=== PATIENT | female | born 1965 | race Caucasian/White ===

== ENCOUNTER → 2016-09-24 | Outpatient (CLI) | payer BC ==
[2016-09-24 12:08] LABS: Basophils % (A) 0 %; CH 32.5; CHCM 33.5; Eosinophils # (A) 0.1 k/uL (0-0.7); Eosinophils % (A) 2 %; HCT 44.4 % (34.0-46.0); HDW 2.42; HGB 14.5 gm/dL (11.4-16.0); Luc # (Auto) 0.11; Luc % (Auto) 2; Lymphocytes # (A) 1.9 k/uL (1.0-4.8); Lymphocytes % (A) 30 %; MCH 31.8 pg (25.0-35.0); MCHC 32.6 g/dL (31.0-37.0); MCV 97.5 fL (80.0-100.0); Mean Platelet Volume 6.9; Monocytes # (A) 0.2 k/uL (0-1.0); Monocytes % (A) 3 %; Neutrophils # (A) 3.9 k/uL (1.3-7.7); Neutrophils % (A) 62 %; RBC 4.56 m/uL (3.80-5.40); RDW 13.1 % (11.5-15.5); WBC 6.3 k/uL (3.8-10.6)
[2016-09-24 12:18] LABS: ALT 47 U/L (9-52); AST 24 U/L (14-36); Alkaline Phosphatase 63 U/L (38-126); Anion Gap 12 mmol/L; Blood Urea Nitrogen 18 mg/dL (7-17); Calcium 9.8 mg/dL (8.4-10.2); Carbon Dioxide 28 mmol/L (22-30); Chloride 103 mmol/L (98-107); Creatine Kinase 53 U/L (30-135); Glucose 92 mg/dL (74-99); LDH 436 U/L (313-618); Non-African American GFR(MDRD) >60 (>60 ml/min/1.73 sqM); Potassium 4.5 mmol/L (3.5-5.1); Sodium 143 mmol/L (137-145); Total Bilirubin 0.5 mg/dL (0.2-1.3); Total Protein 7.6 g/dL (6.3-8.2)
[2016-09-29 14:41] LABS: Mis test requested (Blood) Trop T
== END | disposition home or self-care (01) ==
LOC: LABWHC1 11:17
PROVIDERS: ATTEND Family Medicine
DX: R07.89 Other chest pain (principal)
CPT/HCPCS: 36415; 80053; 82550; 83615; 84484; 85025; 85379

== ENCOUNTER → 2017-11-04 | Outpatient (CLI) | payer BC ==
--- NOTE | 2017-11-04 13:13 | MM ---
Reason for exam: screening (asymptomatic). Last mammogram was performed 2 years and 4 months ago. History: Patient is postmenopausal. Family history of breast cancer in maternal grandmother. Cyst aspiration of the left breast, 1997. Physical Findings: A clinical breast exam by your physician is recommended on an annual basis and results should be correlated with mammographic findings. MG 3D Screening Mammo W/Cad Bilateral CC and MLO view(s) were taken. Prior study comparison: June 27, 2015, bilateral MG screening mammo w CAD. June 05, 2014, bilateral MG screening mammo w CAD. There are scattered fibroglandular densities. There is no discrete abnormality. ASSESSMENT: Negative, BI-RAD 1 RECOMMENDATION: Routine screening mammogram of both breasts in 1 year.
== END ==
LOC: RADMAMWWP 10:43
PROVIDERS: ATTEND Family Medicine
DX: Z12.31 Encounter for screening mammogram for malignant neoplasm of breast (principal)
CPT/HCPCS: 77063; 77067

== ENCOUNTER → 2018-02-28 | Outpatient (CLI) | payer BC ==
--- NOTE | 2018-02-28 08:30 | US ---
EXAMINATION TYPE: US abdomen complete DATE OF EXAM: 02/28/2018 COMPARISON: NONE CLINICAL HISTORY: R10.9 Abdominal Pain. Burning sensation epigastric area, history of pancreatitis EXAM MEASUREMENTS: Liver Length: 13.1 cm Gallbladder Wall: 0.3 cm CBD: 0.2 cm Spleen: 10.2 cm Right Kidney: 10.7 x 4.2 x 5.6 cm Left Kidney: 10.1 x 5.5 x 4.4 cm Pancreas: visualized portions appear wnl Liver: appears wnl Gallbladder: no evidence of stones Evidence for sonographic Gonzalez's sign: no CBD: wnl Spleen: wnl Right Kidney: no evidence of hydronephrosis or mass Left Kidney: no evidence of hydronephrosis or mass Upper IVC: wnl Abd Aorta: wnl IMPRESSION: 1. Abdomen ultrasound appears unremarkable as visualized.
== END | disposition home or self-care (01) ==
LOC: RADUSWWP 07:28
PROVIDERS: ATTEND Family Medicine
DX: R10.9 Unspecified abdominal pain (principal)
CPT/HCPCS: 76700

== ENCOUNTER → 2019-05-12 | Outpatient (CLI) | payer BC ==
--- NOTE | 2019-05-15 09:55 | MM ---
Reason for exam: screening (asymptomatic). Last mammogram was performed 1 year and 6 months ago. History: Patient is postmenopausal. Family history of breast cancer in maternal grandmother. Cyst aspiration of the left breast, 1997. Physical Findings: A clinical breast exam by your physician is recommended on an annual basis and results should be correlated with mammographic findings. MG 3D Screening Mammo W/Cad Bilateral CC and MLO view(s) were taken. Prior study comparison: November 04, 2017, bilateral MG 3d screening mammo w/cad. June 27, 2015, bilateral MG screening mammo w CAD. There are scattered fibroglandular densities. Asymmetric breast tissue right medial aspect inferior position, stable. There is no discrete abnormality. ASSESSMENT: Benign, BI-RAD 2 RECOMMENDATION: Routine screening mammogram of both breasts in 1 year.
== END | disposition home or self-care (01) ==
LOC: RADMAMWWP 09:13
PROVIDERS: ATTEND Family Medicine
DX: Z12.31 Encounter for screening mammogram for malignant neoplasm of breast (principal)
CPT/HCPCS: 77063; 77067

== ENCOUNTER → 2020-05-25 | Outpatient (CLI) | payer BC ==
--- NOTE | 2020-05-25 10:11 | MR ---
MRI CERVICAL SPINE: CLINICAL HISTORY: Cervical radiculopathy per order. Neck pain for 15 years causing pain or weakness i nto both arms and fingers TECHNIQUE: Multiplanar, multisequence imaging of the cervical spine is performed without IV contrast. COMPARISON: None. FINDINGS:: Images show levoconvex scoliotic curvature centered at the cervicothoracic junction Sagitt al images of the cervical spine show the craniocervical junction to appear within normal limits. The cervical and upper thoracic spinal cord is normal in caliber and signal. Alignment is straightened o n sagittal images with slight grade 1 anterolisthesis C2 on C3 and slight grade 1 retrolisthesis C3 o n C4 and C6 on C7. The vertebral body heights are normal. Mild to moderate disc space narrowing C5- C6 and C6-C7 levels with mild to moderate anterior spurring, some heterogeneous bone uptake to endpla te changes at these levels are noted. Axial images show the C2-C3 level to appear within normal limits. Axial images at C3-C4 levels from broad-based left paracentral disc protrusion effacing anterolateral thecal sac up to ventral surface of spinal cord on image 35, bilateral neural foramina are patent. Axial images at C4-C5 level show focal left paracentral/foraminal disc protrusion effacing anterolate ral thecal sac and causing asymmetric mild left-sided neural foraminal narrowing. Axial images at the C5-C6 level shows broad-based right paracentral disc protrusion effacing anterola teral thecal sac, there is additional left foraminal spur disc complex causing mild left-sided neural foraminal narrowing sagittal image 4. Axial images at C6-C7 also broad-based left paracentral/foraminal disc protrusion effacing the travis lateral thecal sac and causing mild left-sided neural foraminal narrowing. Axial images at C7-T1 level are within normal limits. Somewhat small size thyroid gland is noted. IMPRESSION: Loss of normal cervical curvature. Multilevel spondylolisthesis and degenerative changes greatest C3-C4 through the C6-C7 levels as detailed above.
== END | disposition home or self-care (01) ==
LOC: RADMRIMAIN 08:13
PROVIDERS: ATTEND Family Medicine
DX: M43.12 Spondylolisthesis, cervical region (principal); M47.22 Other spondylosis with radiculopathy, cervical region; M43.8X2 Other specified deforming dorsopathies, cervical region
CPT/HCPCS: 72141

== ENCOUNTER → 2020-11-21 | Outpatient (CLI) | payer BC ==
--- NOTE | 2020-11-25 11:35 | MM ---
Reason for exam: screening (asymptomatic). Last mammogram was performed 1 year and 6 months ago. History: Patient is postmenopausal. Family history of breast cancer in maternal grandmother. Cyst aspiration of the left breast, 1997. Physical Findings: A clinical breast exam by your physician is recommended on an annual basis and results should be correlated with mammographic findings. MG 3D Screening Mammo W/Cad Bilateral CC and MLO view(s) were taken. Prior study comparison: May 12, 2019, bilateral MG 3d screening mammo w/cad. November 04, 2017, bilateral MG 3d screening mammo w/cad. The breast tissue is heterogeneously dense. This may lower the sensitivity of mammography. There is no discrete abnormality. ASSESSMENT: Negative, BI-RAD 1 RECOMMENDATION: Routine screening mammogram of both breasts in 1 year.
== END | disposition home or self-care (01) ==
LOC: RADMAMWWP 11:36
PROVIDERS: ATTEND Family Medicine
DX: Z12.31 Encounter for screening mammogram for malignant neoplasm of breast (principal)
CPT/HCPCS: 77063; 77067

== ENCOUNTER → 2021-03-20 | Outpatient (CLI) | payer BC ==
[2021-03-20 12:27] LABS: Basophils # (A) 0.03 X 10*3/uL (0.00-0.10); Basophils % (A) 0.5 %; Eosinophils % (A) 3.5 %; HCT 42.8 % (37.2-46.3); HGB 13.9 g/dL (12.0-15.0); Lymphocytes # (A) 1.75 X 10*3/uL (0.90-5.00); Lymphocytes % (A) 30.4 %; MCH 32.1 pg (27.0-32.0); MCHC 32.5 g/dL (32.0-37.0); MCV 98.8 fL (80.0-97.0); Monocytes # (A) 0.37 X 10*3/uL (0.20-1.00); Monocytes % (A) 6.4 %; Neutrophils # (A) 3.39 X 10*3/uL (1.80-7.70); Platelet Count 274 X 10*3/uL (140-440); RBC 4.33 X 10*6/uL (4.10-5.20); RDW 13.7 % (11.5-14.5); WBC 5.75 X 10*3/uL (4.50-10.00)
[2021-03-20 14:46] LABS: Luteinizing Hormone 54.8 mIU/mL
[2021-03-20 14:47] LABS: Follicle Stimulating Hormone 104.4 mIU/mL
[2021-03-20 17:07] LABS: Erythrocyte Sedimentation Rate 8 mm/Hr (0-30)
[2021-03-20 17:27] LABS: African American GFR (CKD) 96.9 (60.0-200.0); Albumin 4.3 g/dL (3.80-4.90); Albumin/Globulin Ratio 1.79 (1.60-3.17); Anion Gap 10.8 mmol/L (4.00-12.00); BUN/Creat Ratio 26.25 Ratio (12.00-20.00); Calcium 9.1 mg/dL (8.7-10.3); Carbon Dioxide 24.2 mmol/L (21.6-31.8); Globulin 2.4 g/dL (1.6-3.3); Non-African American GFR(CKD) 83.6 (60.0-200.0); Potassium 4.6 mmol/L (3.5-5.5); Total Bilirubin 0.3 mg/dL (0.3-1.2); Total Protein 6.7 g/dL (6.2-8.2)
== END | disposition home or self-care (01) ==
LOC: LABWHC1 07:25
PROVIDERS: ATTEND Family Medicine
DX: Z11.59 Encounter for screening for other viral diseases (principal); T78.49XA Other allergy, initial encounter; E89.41 Symptomatic postprocedural ovarian failure; Z20.822 Contact with and (suspected) exposure to COVID-19
CPT/HCPCS: 36415; 80053; 82040; 82175; 82570; 82626; 82672; 82785; 83001; 83002; 83655; 83825; 84270; 84403; 85025; 85652; 86769

== ENCOUNTER → 2023-02-16 | Outpatient (CLI) | payer BC ==
[2023-02-16 15:49] LABS: ALT 23 U/L (8-44); AST 18 U/L (13-35); Albumin 4.6 d/dL (3.8-4.9); Albumin/Globulin Ratio 1.84 Ratio (1.60-3.17); Alkaline Phosphatase 64 U/L (41-126); BUN/Creat Ratio 32.43 Ratio (12.00-20.00); Blood Urea Nitrogen 22.7 mg/dL (9.0-27.0); Calcium 9.8 mg/dL (8.7-10.3); Carbon Dioxide 26.3 mmol/L (21.6-31.8); Chloride 103 mmol/L (96-109); Chol/HDL Ratio 3.74 Ratio; Globulin 2.5 d/dL (1.6-3.3); Glucose 84 mg/dL (70-110); LDL Cholesterol,Calculated 141.5 mg/dL (0.0-131.0); Potassium 5.2 mmol/L (3.5-5.5); Sodium 141 mmol/L (135-145); Total Bilirubin 0.5 mg/dL (0.3-1.2); Total Protein 7.1 d/dL (6.2-8.2)
[2023-02-16 15:56] LABS: Basophils # (A) 0.02 X 10*3/uL (0.00-0.10); Basophils % (A) 0.4 %; Eosinophils # (A) 0.14 X 10*3/uL (0.04-0.35); Eosinophils % (A) 2.6 %; HCT 45.9 % (37.2-46.3); HGB 14.7 d/dL (12.0-15.0); Lymphocytes # (A) 1.57 X 10*3/uL (0.90-5.00); Lymphocytes % (A) 28.8 %; MCH 32.4 pg (27.0-32.0); MCV 101.1 FL (80.0-97.0); Mean Platelet Volume 10.1 FL (9.5-12.2); Monocytes # (A) 0.27 X 10*3/uL (0.20-1.00); Monocytes % (A) 4.9 %; NRBC Per 100 WBC 0 X 10*3/uL (0.00-0.01); Neutrophils # (A) 3.45 X 10*3/uL (1.80-7.70); Neutrophils % (A) 63.1 %; Platelet Count 307 X 10*3/uL (140-440); RBC 4.54 X 10*6/uL (4.10-5.20); RDW 13.6 % (11.5-14.5); WBC 5.46 X 10*3/uL (4.50-10.00)
== END | disposition home or self-care (01) ==
LOC: LABWHC1 08:27
PROVIDERS: ATTEND Family Medicine
DX: Z00.00 Encounter for general adult medical examination without abnormal findings (principal)
CPT/HCPCS: 36415; 80053; 80061; 83036; 84443; 85025

== ENCOUNTER → 2023-02-16 | Outpatient (CLI) | payer BC ==
[2023-02-16 08:43] VITALS: BP 102/48; PULSE 71; RESP 16; TEMP 98
--- NOTE | 2023-02-16 09:22 | P.HPOB ---
History of Present Illness H&P Date: 02/16/23 Chief Complaint: The patient is here for her routine gynecologic exam and ma mmogram. This is a 57-year-old with an LMP of 2012. The patient is here to establish with this office. It has been about 2 years since her last pelvic exam. She is without gynecologic complaints and denies any postmenopausal bleeding. Review of Systems The patient's weight has been stable over the last year. She denies respiratory, cardiac, or G.I. problems. Past Medical History Past Medical History: Asthma Additional Past Medical History / Comment(s): Left bundle-branch block. 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 Endometriosis in the past. History of Any Multi-Drug Resistant Organisms: None Reported Past Surgical History: Joint Replacement Additional Past Surgical History / Comment(s): LAPRASCOPIC SX, D&C. Right knee replacement. Past Anesthesia/Blood Transfusion Reactions: Family History of Problems w/ Anesthesia Additional Past Anesthesia/Blood Transfusion Reaction / Comment(s): MOTHER TOOK A LONG TIME TO WAKE UP Past Psychological History: ADD/ADHD (She denies depression.) Smoking Status: Never smoker Past Alcohol Use History: Occasional (2 per month.) Past Drug Use History: None Reported Additional History: She has been since 1993. 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 - Past Family History Mother Family Medical History: Cancer Additional Family Medical History / Comment(s): CLL, MOTHER OF BLOOD CLOT POST HEART CATH. Maternal uncle had liver cancer and another maternal uncle had colon cancer. Father Additional Family Medical History / Comment(s): . Heart disease in his 80s. Medications and Allergies Home Medications Medication Instructions Recorded Confirmed Type Albuterol Sulfate [Ventolin HFA] 2 puff INHALATION DIRECTED PRN 12/23/15 02/16/23 History Breo Inhaler (Unknown Dose) 1 applic INHALATION QAM 12/23/15 02/16/23 History Dextroamphetamine/Amphetamine 10 mg PO DAILY 12/24/15 02/16/23 History [Adderall] Ivabradine HCl [Corlanor] 10 mg PO BID 02/16/23 02/16/23 History Omalizumab [Xolair] 375 mg INJ DIRECTED 02/16/23 02/16/23 History Allergies Allergy/AdvReac Type Severity Reaction Status Date / Time nickel Allergy Rash/Hives Unverified 02/16/23 08:36 Penicillins Allergy Rash/Hives Verified 02/16/23 08:36 Sulfa (Sulfonamide Allergy Rash/Hives Verified 02/16/23 08:36 Antibiotics) Exam Vital Signs Temp Pulse Resp BP Pulse Ox 02/16/23 08:39 98 F 71 16 102/48 100 Intake and Output 02/15/23 02/16/23 02/16/23 22:59 06:59 14:59 Other: Weight 70.76 kg Height 5 feet 6 inches, weight 156 pounds, BMI 25.2. This is a well-developed well-nourished white female who is alert and oriented times 3 in no acute distress. HEENT: Within normal limits. NECK: Supple without mass or thyromegaly. CHEST AND LUNGS: Clear to auscultation. HEART: Regular rate and rhythm. BREASTS: Are without mass or discharge. AXILLARY EXAM: Negative for adenopathy. BACK: Negative for CVA tenderness. ABDOMEN: Soft, nontender, without palpable masses. PELVIC EXAM: Normal external genitalia with mild atrophy. Cervix and vagina appear normal with mild atrophy. There is no unusual discharge. There is no evidence of prolapse. The uterus is midposition, nongravid size and nontender. There are no palpable adnexal masses or tenderness. RECTAL EXAM: Rectovaginal exam is negative for mass or tenderness and is negative for occult blood. EXTREMITIES: Nontender. IMPRESSION: 1. 57-year-old menopausal female with normal gynecologic exam. PLAN: 1. Pap smear cotest was performed. 2. Self breast awareness was discussed with the patient. We have also discussed symptoms associated with inflammatory breast cancer. Screening mammogram will be done today. 3. Osteoporosis prevention was discussed. I have stressed the importance of adequate calcium, vitamin D and regular exercise. Recommended amounts of calcium and vitamin D were also discussed. 4. Colorectal cancer screening was discussed. She had a negative Cologuard testing in 2021 per the patient. She will continue to do this type of screening through her PCP. 5. She was advised to return in one year for her annual well woman exam.
--- NOTE | 2023-02-17 08:55 | MM ---
Reason for Exam: Screening (asymptomatic). Last mammogram was performed 2 year(s) and 3 month(s) ago. Patient History: Menarche at age 18. First Full-Term at age 26. Postmenopausal. Patient has history of breast feeding. 1997, Cyst Aspiration on the Left side. Maternal grandmother had breast cancer. Risk Values: Lexie 5 year model risk: 1.0%. NCI Lifetime model risk: 6.7%. Prior Study Comparison: 06/27/2015 Bilateral Screening Mammogram, [facility]. 11/04/2017 Bilateral Screening Mammogram, [facility]. 05/12/2019 Bilateral Screening Mammogram, [facility]. 11/21/2020 Bilateral Screening Mammogram, [facility]. Tissue Density: The breast tissue is heterogeneously dense. This may lower the sensitivity of mammography. Findings: Analyzed By CAD. There is no suspicious group of microcalcifications or new suspicious mass in either breast. Overall Assessment: Benign, BI-RAD 2 Management: Screening Mammogram of both breasts in 1 year. . Patient should continue monthly self-breast exams. A clinical breast exam by your physician is recommended on an annual basis. This exam should not preclude additional follow-up of suspicious palpable abnormalities. Note on Lexie scores and lifetime risk: 1. A Lexie score greater than 3% is considered moderate risk. If this is the case, consider specialist referral to assess eligibility for a risk reducing agent. 2. If overall lifetime risk for the development of breast cancer is 20% or higher, the patient may qualify for future screening with alternating mammogram and breast MRI. Electronically signed and approved by: Guerrero Crespo M.D. Radiologis
== END ==
LOC: WWCWWP 08:24
PROVIDERS: ATTEND Obstetrics & Gynecology
DX: Z12.31 Encounter for screening mammogram for malignant neoplasm of breast (principal); Z01.411 Encounter for gynecological examination (general) (routine) with abnormal findings; Z91.048 Other nonmedicinal substance allergy status; Z88.0 Allergy status to penicillin; Z88.2 Allergy status to sulfonamides; J45.909 Unspecified asthma, uncomplicated
CPT/HCPCS: 77063; 77067

== ENCOUNTER → 2023-07-12 | Outpatient (CLI) | payer BC ==
--- NOTE | 2023-07-12 09:38 | CT ---
EXAMINATION TYPE: CT abdomen pelvis wo con CT DLP: 392 mGycm, Automated exposure control for dose reduction was used. DATE OF EXAM: 07/12/2023 9:10 AM COMPARISON: None CLINICAL INDICATION:Female, 58 years old with history of R31.9 hematuria; TECHNIQUE: Axial CT of the ;CT abdomen pelvis wo con;Sagittal and coronal reformats were created on a separate workstation. Contrast used: mL of , (none if empty) Oral contrast used: without Oral Contrast (none if empty) FINDINGS: LOWER CHEST: Unremarkable ABDOMEN LIVER: Unremarkable GALLBLADDER AND BILE DUCTS: Unremarkable. PANCREAS: Unremarkable. SPLEEN: Unremarkable. ADRENAL GLANDS: Unremarkable. KIDNEYS AND URETERS: No evidence of hydronephrosis or renal calculus. The ureters are unremarkable. PELVIS BLADDER: Unremarkable REPRODUCTIVE: Unremarkable. ABDOMEN & PELVIS STOMACH AND BOWEL: No evidence of bowel obstruction. Moderate amount stool throughout the colon. PERITONEUM/RETROPERITONEUM: No evidence of pneumoperitoneum or free fluid. VASCULATURE: No evidence of aortic aneurysm. MUSCULOSKELETAL: No acute osseous abnormalities. Mild disc degeneration changes are present throughou t the thoracolumbar spine. LYMPH NODES: No gross evidence for lymphadenopathy. SOFT TISSUE/ABDOMINAL WALL: Fat-containing umbilical hernia. IMPRESSION: 1. No evidence for obstructive uropathy or renal calculus. Urinary bladder is within normal limits. Consider CT urogram for further evaluation of the urinary system. 2. No evidence for acute abdominal process. 3. There is moderate stool burden throughout the colon.
== END | disposition home or self-care (01) ==
LOC: RADCTMAIN 08:26
PROVIDERS: ATTEND Family Medicine
DX: R31.9 Hematuria, unspecified (principal); R19.5 Other fecal abnormalities
CPT/HCPCS: 74176

== ENCOUNTER → 2024-06-07 | Outpatient (CLI) | payer BC ==
[2024-06-07 11:04] LABS: Basophils # (A) 0.04 X 10*3/uL (0.00-0.10); Basophils % (A) 0.4 %; Eosinophils % (A) 2.2 %; HCT 44.8 % (37.2-46.3); HGB 14.8 g/dL (12.0-15.0); Lymphocytes # (A) 2.24 X 10*3/uL (0.90-5.00); Lymphocytes % (A) 25.1 %; MCH 32.9 pg (27.0-32.0); MCV 99.6 FL (80.0-97.0); Mean Platelet Volume 9.7 FL (9.5-12.2); Monocytes # (A) 0.46 X 10*3/uL (0.20-1.00); Monocytes % (A) 5.2 %; NRBC Per 100 WBC 0 X 10*3/uL (0.00-0.01); Neutrophils # (A) 5.96 X 10*3/uL (1.80-7.70); Neutrophils % (A) 66.8 %; Platelet Count 333 X 10*3/uL (140-440); RDW 14.7 % (11.5-14.5); WBC 8.93 X 10*3/uL (4.50-10.00)
[2024-06-07 11:28] LABS: ALT 22 U/L (8-44); AST 16 U/L (13-35); Albumin 4.4 g/dL (3.8-4.9); Albumin/Globulin Ratio 1.69 Ratio (1.60-3.17); Alkaline Phosphatase 72 U/L (41-126); Blood Urea Nitrogen 17.2 mg/dL (9.0-27.0); Calcium 9.4 mg/dL (8.7-10.3); Carbon Dioxide 27.3 mmol/L (21.6-31.8); Chloride 103 mmol/L (96-109); Chol/HDL Ratio 3.34 Ratio; Globulin 2.6 g/dL (1.6-3.3); Glucose 90 mg/dL (70-110); Potassium 4.4 mmol/L (3.5-5.5); Sodium 141 mmol/L (135-145); Total Bilirubin 0.4 mg/dL (0.3-1.2)
== END | disposition home or self-care (01) ==
LOC: LABWHC1 08:50
PROVIDERS: ATTEND Family Medicine
DX: Z00.00 Encounter for general adult medical examination without abnormal findings (principal)
CPT/HCPCS: 36415; 80053; 80061; 83036; 84443; 85025

== ENCOUNTER → 2024-06-07 | Outpatient (CLI) | payer BC ==
[2024-06-07 08:17] VITALS: BP 121/72; PULSE 78; RESP 17; TEMP 98.3
--- NOTE | 2024-06-07 08:40 | P.HPOB ---
History of Present Illness H&P Date: 06/07/24 Chief Complaint: The patient is here for her routine gynecologic exam and ma mmogram. This is a 59-year-old G3, P3 with an LMP of 2013. Patient is without gynecologic complaints and denies any postmenopausal bleeding. Review of Systems Weight has been stable. Respiratory: Occasional asthma symptoms controlled with medications. She denies cardiac or GI problems. Past Medical History Past Medical History: Asthma Additional Past Medical History / Comment(s): Left bundle branch block. 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 Endometriosis in the past. History of Any Multi-Drug Resistant Organisms: None Reported Past Surgical History: Joint Replacement Additional Past Surgical History / Comment(s): LAPRASCOPIC SX, D&C. Right knee replacement. Past Anesthesia/Blood Transfusion Reactions: Family History of Problems w/ Anesthesia Additional Past Anesthesia/Blood Transfusion Reaction / Comment(s): MOTHER TOOK A LONG TIME TO WAKE UP Past Psychological History: ADD/ADHD Smoking Status: Never smoker Past Alcohol Use History: Occasional (4 drinks per month.) Past Drug Use History: None Reported Additional History: She has been since 1993. 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 - Past Family History Mother Family Medical History: Cancer Additional Family Medical History / Comment(s): CLL, MOTHER OF BLOOD CLOT POST HEART CATH. Maternal uncle had liver cancer and another maternal uncle had colon cancer. Father Additional Family Medical History / Comment(s): . Heart disease in his 80s. Medications and Allergies Home Medications Medication Instructions Recorded Confirmed Type Albuterol Sulfate [Ventolin HFA] 2 puff INHALATION DIRECTED PRN 12/23/15 06/07/24 History Breo Inhaler (Unknown Dose) 1 applic INHALATION QAM 12/23/15 06/07/24 History Dextroamphetamine/Amphetamine 10 mg PO DAILY 12/24/15 06/07/24 History [Adderall] Ivabradine HCl [Corlanor] 10 mg PO BID 02/16/23 06/07/24 History Omalizumab [Xolair] 375 mg INJ DIRECTED 02/16/23 06/07/24 History Allergies Allergy/AdvReac Type Severity Reaction Status Date / Time nickel Allergy Rash/Hives Unverified 06/07/24 08:14 Penicillins Allergy Rash/Hives Verified 06/07/24 08:14 Sulfa (Sulfonamide Allergy Rash/Hives Verified 06/07/24 08:14 Antibiotics) Exam Vital Signs Temp Pulse Resp BP Pulse Ox 06/07/24 08:15 98.3 F 78 17 121/72 99 Intake and Output 06/06/24 06/07/24 06/07/24 22:59 06:59 14:59 Other: Weight 71.214 kg Height 5 feet 6 inches, weight 157 pounds, BMI 25.3. This is a well-developed well-nourished white female who is alert and oriented times 3 in no acute distress. HEENT: Within normal limits. NECK: Supple without mass or thyromegaly. CHEST AND LUNGS: Clear to auscultation. HEART: Regular rate and rhythm. BREASTS: Are without mass or discharge. AXILLARY EXAM: Negative for adenopathy. BACK: Negative for CVA tenderness. ABDOMEN: Soft, nontender, without palpable masses. PELVIC EXAM: Normal external genitalia with minimal atrophy. Cervix and vagina appear normal with minimal atrophy. There is no unusual discharge. There is no evidence of prolapse. The uterus is midposition, nongravid size and nontender. There are no palpable adnexal masses or tenderness. RECTAL EXAM: Rectovaginal exam is negative for mass or tenderness and is negative for occult blood. EXTREMITIES: Nontender. IMPRESSION: 1. 59-year-old menopausal female with normal gynecologic exam. PLAN: 1. Pap smear was deferred since she had a negative Pap smear cotest on 02/16/2023. 2. Self breast awareness was discussed with the patient. We have also discussed symptoms associated with inflammatory breast cancer. 3. Screening mammogram will be done today. 4. Osteoporosis prevention was discussed. Will plan on doing her first bone density test at age 62. 5. Colorectal cancer screening has been done using Cologuard testing and she states she recently did this with the results pending. This was done through her PCP. 6. She was advised to return in one year for her annual well woman exam.
--- NOTE | 2024-06-08 13:51 | MM ---
Reason for Exam: Screening (asymptomatic). Last mammogram was performed 1 year(s) and 4 month(s) ago. Patient History: Menarche at age 18. First Full-Term at age 26. Postmenopausal. Patient has history of breast feeding. 1997, Cyst Aspiration on the Left side. Maternal grandmother had breast cancer. Risk Values: Lexie 5 year model risk: 1.0%. NCI Lifetime model risk: 6.5%. Prior Study Comparison: 05/12/2019 Bilateral Screening Mammogram, [facility]. 11/21/2020 Bilateral Screening Mammogram, [facility]. 02/16/2023 Bilateral MG 3D screening mammo w/cad, [facility]. Tissue Density: There are scattered areas of fibroglandular density. Findings: Analyzed By CAD. Right breast: There is no suspicious group of microcalcifications or new suspicious mass. Left breast: There is no suspicious group of microcalcifications or new suspicious mass. Overall Assessment: Negative, BI-RAD 1 Management: Screening Mammogram of both breasts in [address] [facility] will attempt to contact patient to return for supplemental views and ultrasound if indicated. Patient should continue monthly self-breast exams. A clinical breast exam by your physician is recommended on an annual basis. This exam should not preclude additional follow-up of suspicious palpable abnormalities. Note on Lexie scores and lifetime risk: 1. A Lexie score greater than 3% is considered moderate risk. If this is the case, consider specialist referral to assess eligibility for a risk reducing agent. 2. If overall lifetime risk for the development of breast cancer is 20% or higher, the patient may qualify for future screening with alternating mammogram and breast MRI. [facility], , 06/08/2024 1:48 PM. Electronically signed and approved by: Max Goff DO
== END ==
LOC: WWCWWP 08:04
PROVIDERS: ATTEND Obstetrics & Gynecology
DX: Z12.31 Encounter for screening mammogram for malignant neoplasm of breast (principal); Z78.0 Asymptomatic menopausal state; Z88.0 Allergy status to penicillin; Z88.2 Allergy status to sulfonamides; Z91.09 Other allergy status, other than to drugs and biological substances
CPT/HCPCS: 77063; 77067